=== PATIENT | female | born 1995 | race Caucasian/White ===

== ENCOUNTER 2017-10-18 13:34 | Emergency (ER) | payer OTHER, MEDICAID ==
[~2017-10-18] VITALS: Ht 154.9 cm; Wt 72.5 kg
[2017-10-18 14:27] LABS: MICROSCOPIC INDICATED
[2017-10-18 14:32] LABS: BASOPHILS # (AUTO) 0.05 x10^3/uL (0-0.1); BASOPHILS % (AUTO) 1 % (0-1); EOSINOPHILS # (AUTO) 0.15 x10^3/uL (0-0.4); EOSINOPHILS % (AUTO) 2 % (1-7); LYMPHOCYTES # (AUTO) 2.27 x10^3/uL (1-3.4); LYMPHOCYTES % (AUTO) 30 % (22-44); MD NO; MEAN CORPUSCULAR HEMOGLOBIN 26.4 pg (27.0-34.8); MEAN CORPUSCULAR HGB CONC 33.5 g/dL (32.4-35.8); MEAN CORPUSCULAR VOLUME 78.7 fL (80-100); MEAN PLATELET VOLUME 10.3 fL (7.4-10.4); MONOCYTES # (AUTO) 0.58 x10^3/uL (0.2-0.8); MONOCYTES % (AUTO) 8 % (2-9); NEUTROPHILS # (AUTO) 4.47 x10^3/uL (1.8-6.8); NEUTROPHILS % (AUTO) 59 % (42-75); PLATELET COUNT 209 x10^3/uL (130-400); RED BLOOD COUNT 4.61 x10^6/uL (3.82-5.3); RED CELL DISTRIBUTION WIDTH 17.4 % (9.6-15.2)
[2017-10-18 14:43] LABS: ALANINE AMINOTRANSFERASE 36 U/L (12-78); ALBUMIN 3.7 g/dL (3.4-5.0); ANION GAP 7 mmol/L (5-15); CALCIUM 8.3 mg/dL (8.5-10.1); CHLORIDE 107 mmol/L (98-107); CREATININE 0.68 mg/dL (0.55-1.02)
[2017-10-18 14:47] LABS: ALKALINE PHOSPHATASE 62 U/L (45-117); BILIRUBIN,TOTAL 0.2 mg/dL (0.2-1.0); TOTAL PROTEIN 7.3 g/dL (6.4-8.2)
[2017-10-18 14:56] LABS: CULTURE INDICATED? YES
[2017-10-18 15:07] VITALS: BP 110/56
== END 2017-10-18 15:35 | disposition home or self-care (01) ==
LOC: ED 14:57
DX: N30.00 Acute cystitis without hematuria (principal)
CPT/HCPCS: 36415; 80053; 81001; 84702; 85025; 87086; 99284

== ENCOUNTER 2018-03-08 18:44 | Emergency (ER) | payer OTHER, MEDICAID ==
[~2018-03-08] VITALS: Ht 154.9 cm; Wt 73.6 kg
[2018-03-08 19:20] LABS: BASOPHILS # (AUTO) 0.07 x10^3/uL (0-0.1); BASOPHILS % (AUTO) 1 % (0-1); EOSINOPHILS # (AUTO) 0.12 x10^3/uL (0-0.4); EOSINOPHILS % (AUTO) 1 % (1-7); LYMPHOCYTES # (AUTO) 3.97 x10^3/uL (1-3.4); LYMPHOCYTES % (AUTO) 41 % (22-44); MD NO; MEAN CORPUSCULAR HEMOGLOBIN 27.8 pg (27.0-34.8); MEAN CORPUSCULAR HGB CONC 33.6 g/dL (32.4-35.8); MEAN CORPUSCULAR VOLUME 82.6 fL (80-100); MEAN PLATELET VOLUME 8.9 fL (7.4-10.4); MONOCYTES # (AUTO) 0.62 x10^3/uL (0.2-0.8); MONOCYTES % (AUTO) 6 % (2-9); NEUTROPHILS # (AUTO) 4.92 x10^3/uL (1.8-6.8); NEUTROPHILS % (AUTO) 51 % (42-75); PLATELET COUNT 301 x10^3/uL (130-400); RED BLOOD COUNT 4.66 x10^6/uL (3.82-5.3); RED CELL DISTRIBUTION WIDTH 16.5 % (9.6-15.2)
[2018-03-08 19:29] LABS: ALBUMIN 3.6 g/dL (3.4-5.0); ANION GAP 10 mmol/L (5-15); CALCIUM 8.5 mg/dL (8.5-10.1); CHLORIDE 107 mmol/L (98-107); CREATININE 0.69 mg/dL (0.55-1.02)
[2018-03-08 19:31] LABS: MICROSCOPIC INDICATED
[2018-03-08 19:44] LABS: CULTURE INDICATED? YES
[2018-03-08 21:27] VITALS: BP 99/62
[2018-03-08 21:29] VITALS: BP 101/52
[2018-03-08 21:56] VITALS: BP 110/59
== END 2018-03-08 22:14 | disposition home or self-care (01) ==
LOC: ED 20:30
DX: O20.0 Threatened abortion (principal)
CPT/HCPCS: 36415; 76801; 80048; 81001; 82040; 84702; 85025; 86850; 86900; 87077; 87086; 87186; 96372; 99285; J2790

== ENCOUNTER 2018-03-19 20:29 | Emergency (ER) | payer OTHER, MEDICAID ==
[~2018-03-19] VITALS: Ht 154.9 cm; Wt 73.6 kg
[2018-03-19 21:12] LABS: BASOPHILS # (AUTO) 0.15 x10^3/uL (0-0.1); BASOPHILS % (AUTO) 2 % (0-1); EOSINOPHILS # (AUTO) 0.18 x10^3/uL (0-0.4); EOSINOPHILS % (AUTO) 2 % (1-7); LYMPHOCYTES # (AUTO) 2.84 x10^3/uL (1-3.4); LYMPHOCYTES % (AUTO) 33 % (22-44); MD NO; MEAN CORPUSCULAR HEMOGLOBIN 28.8 pg (27.0-34.8); MEAN CORPUSCULAR HGB CONC 34.4 g/dL (32.4-35.8); MEAN CORPUSCULAR VOLUME 83.7 fL (80-100); MEAN PLATELET VOLUME 9.7 fL (7.4-10.4); MONOCYTES # (AUTO) 0.64 x10^3/uL (0.2-0.8); MONOCYTES % (AUTO) 7 % (2-9); NEUTROPHILS # (AUTO) 4.87 x10^3/uL (1.8-6.8); NEUTROPHILS % (AUTO) 56 % (42-75); PLATELET COUNT 215 x10^3/uL (130-400); RED BLOOD COUNT 4.23 x10^6/uL (3.82-5.3); RED CELL DISTRIBUTION WIDTH 16.7 % (9.6-15.2)
[2018-03-19 21:26] LABS: ALBUMIN 3.3 g/dL (3.4-5.0); ANION GAP 9 mmol/L (5-15); CALCIUM 8.3 mg/dL (8.5-10.1); CHLORIDE 109 mmol/L (98-107); CREATININE 0.62 mg/dL (0.55-1.02)
[2018-03-19 21:53] LABS: MICROSCOPIC AUTO
[2018-03-19 21:55] LABS: CULTURE INDICATED? YES
[2018-03-19 22:27] VITALS: BP 122/71
== END 2018-03-19 22:30 | disposition home or self-care (01) ==
LOC: ED 21:04
DX: O20.0 Threatened abortion (principal); O23.40 Unspecified infection of urinary tract in pregnancy, unspecified trimester; Z3A.01 Less than 8 weeks gestation of pregnancy
CPT/HCPCS: 36415; 76801; 80048; 81001; 82040; 84702; 85025; 86900; 87086; 99284

== ENCOUNTER 2018-08-27 19:05 | Outpatient (CLI) | payer OTHER ==
[~2018-08-27] VITALS: Ht 154.9 cm; Wt 79.0 kg
[~2018-08-27 19:05] MED LIST: PREN1TAB60 PO
[2018-08-27 19:14] VITALS: BP 112/55
[2018-08-27 19:37] LABS: MICROSCOPIC AUTO
[2018-08-28] MEDS ORDERED: DIPH25TA65 PO (01:51)
[2018-08-29] MEDS ORDERED: PRED20TA PO ×2 (15:19)
== END 2018-08-27 20:20 | disposition home or self-care (01) ==
LOC: LDOP 19:05
PROVIDERS: ATTEND Obstetrics & Gynecology
DX: O26.893 Other specified pregnancy related conditions, third trimester (principal); O99.513 Diseases of the respiratory system complicating pregnancy, third trimester; R10.9 Unspecified abdominal pain; R06.02 Shortness of breath; Z3A.30 30 weeks gestation of pregnancy
CPT/HCPCS: 59025; 81001; 87086; 99211; G0463

== ENCOUNTER 2018-08-27 20:32 | Inpatient (IN) | payer OTHER ==
[~2018-08-27] VITALS: Ht 162.6 cm; Wt 81.6 kg
[2018-08-27] MEDS ORDERED: SODIUM CHLORIDE 0.9% 1,000ML IVBOLUS ONE (21:00)
[2018-08-27] MEDS ORDERED: ALBUTEROL SULFATE 2.5 MG/3 ML NPPB ONE (21:00)
[2018-08-27] MEDS ORDERED: ALBUTEROL/IPRATROPIUM 2.5MG/0.5MG, 3 ML ONE ×2 (21:05→22:55)
[2018-08-27 21:27] LABS: BASOPHILS # (AUTO) 0.01 x10^3/uL (0-0.1); BASOPHILS % (AUTO) 0 % (0-1); EOSINOPHILS # (AUTO) 0.29 x10^3/uL (0-0.4); EOSINOPHILS % (AUTO) 2 % (1-7); LYMPHOCYTES # (AUTO) 1.37 x10^3/uL (1-3.4); LYMPHOCYTES % (AUTO) 10 % (22-44); MD NO; MEAN CORPUSCULAR HEMOGLOBIN 26.1 pg (27.0-34.8); MEAN CORPUSCULAR HGB CONC 33.4 g/dL (32.4-35.8); MEAN CORPUSCULAR VOLUME 78.1 fL (80-100); MEAN PLATELET VOLUME 8.9 fL (7.4-10.4); MONOCYTES # (AUTO) 0.82 x10^3/uL (0.2-0.8); MONOCYTES % (AUTO) 6 % (2-9); NEUTROPHILS # (AUTO) 11.71 x10^3/uL (1.8-6.8); NEUTROPHILS % (AUTO) 83 % (42-75); PLATELET COUNT 219 x10^3/uL (130-400); RED BLOOD COUNT 4.11 x10^6/uL (3.82-5.3); RED CELL DISTRIBUTION WIDTH 16.9 % (9.6-15.2)
[2018-08-27 21:39] LABS: ALBUMIN 3.3 g/dL (3.4-5.0); ANION GAP 7 mmol/L (5-15); CALCIUM 8.8 mg/dL (8.5-10.1); CHLORIDE 109 mmol/L (98-107)
[2018-08-27 21:43] LABS: TROPONIN I < 0.015 ng/mL (0.000-0.045)
--- NOTE | 2018-08-27 21:57 | NUR ---
TO CT NOW
--- NOTE | 2018-08-27 22:22 | NUR ---
PT AMBULATED TO BR WITHOUT DIFFICULTY. MULTIPLE FAMILY MEMBERS AT .
[2018-08-27] MEDS ORDERED: ALBUTEROL/IPRATROPIUM 2.5MG/0.5MG, 3 ML NPPB ONE (23:00)
--- NOTE | 2018-08-27 23:24 | NUR ---
O2 WEANED TO 0.5L, SPO2 95%. BUT HR STILL ELEVATED 140s AT THIS TIME. PT C/O SOB AND PAIN BELOW HER SHOULDER BLADES DOWN TO HER BACK 12/02. SPEAKING IN FULL SENTENCES, A&OX4.
[2018-08-28] VITALS (8 sets, daily range): BP systolic 99–189; BP diastolic 66–96
--- NOTE | 2018-08-28 00:01 | NUR ---
PT UNDERSTANDS PLAN FOR ADMISSION. FAMILY LEAVING FOR THE NIGHT.
--- NOTE | 2018-08-28 00:07 | NUR ---
assumed care of pt from shirley ross. pt stable, hr elevated, smh md pretty to bs, water given, call light in place.
--- NOTE | 2018-08-28 00:23 | NUR ---
pt to 494-2 now with belongings, shirley kc recieved report.
[2018-08-28] MEDS ORDERED: ALBUTEROL SULFATE 2.5 MG/3 ML NPPB PRN (00:30)
[2018-08-28] MEDS ORDERED: ALBUTEROL/IPRATROPIUM 2.5MG/0.5MG, 3 ML HHN PRN (00:30)
[2018-08-28] MEDS: SODIUM CHLORIDE 0.9% 1,000 ML IV SCH ×2 (01:41→16:45)
[2018-08-28] MEDS ORDERED: DIPH25TA65 PO (01:51)
[2018-08-28] MEDS ORDERED: ACETAMINOPHEN 325 MG TABLET PO ONE (02:30)
[2018-08-28 06:43] LABS: TROPONIN I < 0.015 ng/mL (0.000-0.045)
[2018-08-28 12:15] LABS: ANION GAP 9 mmol/L (5-15); CALCIUM 8.4 mg/dL (8.5-10.1); CHLORIDE 111 mmol/L (98-107)
[2018-08-28 12:16] LABS: CREATININE 0.49 mg/dL (0.55-1.02)
[2018-08-28 13:51] LABS: FREE T4 (FREE THYROXINE) 0.88 ng/dL (0.76-1.46); THYROID STIMULATING HORMONE 0.681 mIU/L (0.358-3.740)
[2018-08-28] MEDS ORDERED: ACETAMINOPHEN 325 MG TABLET PO PRN (17:00)
[2018-08-28] MEDS ORDERED: OMNIPAQUE 350 MG/ML, 100ML BOTTLE ONE (21:00)
[2018-08-29 01:03] VITALS: BP 106/60
[2018-08-29] MEDS: SODIUM CHLORIDE 0.9% 1,000 ML IV SCH (05:06)
[2018-08-29 06:29] LABS: BASOPHILS # (AUTO) 0.02 x10^3/uL (0-0.1); BASOPHILS % (AUTO) 0 % (0-1); EOSINOPHILS % (AUTO) 0 % (1-7); LYMPHOCYTES # (AUTO) 1.47 x10^3/uL (1-3.4); LYMPHOCYTES % (AUTO) 13 % (22-44); MD NO; MEAN CORPUSCULAR HEMOGLOBIN 26.2 pg (27.0-34.8); MEAN CORPUSCULAR HGB CONC 33.2 g/dL (32.4-35.8); MEAN PLATELET VOLUME 8.5 fL (7.4-10.4); MONOCYTES # (AUTO) 0.57 x10^3/uL (0.2-0.8); MONOCYTES % (AUTO) 5 % (2-9); NEUTROPHILS # (AUTO) 9.14 x10^3/uL (1.8-6.8); NEUTROPHILS % (AUTO) 82 % (42-75); PLATELET COUNT 212 x10^3/uL (130-400); RED BLOOD COUNT 3.51 x10^6/uL (3.82-5.3)
[2018-08-29 06:41] LABS: ANION GAP 8 mmol/L (5-15); CALCIUM 8.2 mg/dL (8.5-10.1); CHLORIDE 114 mmol/L (98-107); CREATININE 0.38 mg/dL (0.55-1.02)
[2018-08-29 07:46] VITALS: BP 99/61
[2018-08-29 14:43] VITALS: BP 105/69
[2018-08-29] MEDS ORDERED: PRED20TA PO (15:19)
== END 2018-08-29 16:53 | disposition home or self-care (01) | DRG 831 ==
LOC: ED 20:57 → EDIP 08-28 → 4EST 08-28 00:57 → DCLOUNGE 08-29 16:40
PROVIDERS: ADMIT Internal Medicine; ATTEND Internal Medicine
DX: O99.113 Other diseases of the blood and blood-forming organs and certain disorders involving the immune mechanism complicating pregnancy, third trimester (principal); J96.01 Acute respiratory failure with hypoxia; J45.901 Unspecified asthma with (acute) exacerbation; J98.11 Atelectasis; D72.829 Elevated white blood cell count, unspecified; E87.6 Hypokalemia; O99.513 Diseases of the respiratory system complicating pregnancy, third trimester; O99.283 Endocrine, nutritional and metabolic diseases complicating pregnancy, third trimester; Z3A.30 30 weeks gestation of pregnancy; Z83.3 Family history of diabetes mellitus; Z83.2 Family history of diseases of the blood and blood-forming organs and certain disorders involving the immune mechanism; Z79.899 Other long term (current) drug therapy
CPT/HCPCS: 36415; 96360; 99285; J7620; 71275; 80048; 82040; 82962; 83880; 84439; 84443; 84484; 85025; 93005; 93306; 94640; G0378; Q9967; J7030; J7512

== ENCOUNTER 2018-09-14 09:02 | Outpatient (CLI) | payer OTHER ==
[~2018-09-14] VITALS: Ht 154.9 cm; Wt 77.3 kg
[~2018-09-14 09:02] MED LIST changes: +DIPH25TA65 PO; +PRED20TA PO
[2018-09-14 09:55] VITALS: BP 115/59
[2018-09-14 10:01] LABS: MICROSCOPIC AUTO
[2018-09-14] MEDS ORDERED: NITR100C56 PO (10:35)
== END 2018-09-14 10:50 | disposition home or self-care (01) ==
LOC: LDOP 09:02
PROVIDERS: ATTEND Obstetrics & Gynecology
DX: O26.893 Other specified pregnancy related conditions, third trimester (principal); Z3A.32 32 weeks gestation of pregnancy
CPT/HCPCS: 59025; 81001; 87086; 99211; G0463

== ENCOUNTER 2018-09-25 17:17 | Outpatient (CLI) | payer OTHER ==
[~2018-09-25] VITALS: Ht 154.9 cm; Wt 80.0 kg
[~2018-09-25 17:17] MED LIST changes: +NITR100C56 PO
[2018-09-25 17:25] VITALS: BP 100/52
[2018-09-25] MEDS ORDERED: ACETAMINOPHEN 325 MG TABLET ONE (17:39)
[2018-09-25] MEDS ORDERED: ACETAMINOPHEN 325 MG TABLET PO ONE (18:00)
== END 2018-09-25 19:10 | disposition home or self-care (01) ==
LOC: LDOP 17:17
PROVIDERS: ATTEND Obstetrics & Gynecology
DX: O26.893 Other specified pregnancy related conditions, third trimester (principal); R51 Headache; Z3A.34 34 weeks gestation of pregnancy
CPT/HCPCS: 59025; 99211; G0463

== ENCOUNTER 2018-10-09 07:11 | Outpatient (CLI) | payer OTHER ==
[~2018-10-09] VITALS: Ht 154.9 cm; Wt 78.2 kg
[2018-10-09 07:27] VITALS: BP 107/58
[2018-10-09] MEDS ORDERED: ACETAMINOPHEN 325 MG TABLET PO PRN (08:00)
[2018-10-09] MEDS ORDERED: ACETAMINOPHEN 325 MG TABLET ONE (08:03)
[2018-10-09 08:09] LABS: MICROSCOPIC INDICATED
== END 2018-10-09 09:26 | disposition home or self-care (01) ==
LOC: LDOP 07:11
PROVIDERS: ATTEND Obstetrics & Gynecology
DX: O26.893 Other specified pregnancy related conditions, third trimester (principal); R10.9 Unspecified abdominal pain; Z3A.36 36 weeks gestation of pregnancy
CPT/HCPCS: 59025; 81001; 87081; 87086; 99211; G0463

== ENCOUNTER 2018-10-13 21:52 | Outpatient (CLI) | payer OTHER ==
[~2018-10-13] VITALS: Ht 154.9 cm; Wt 78.6 kg
[2018-10-13 22:15] VITALS: BP 118/72
[2018-10-13 23:22] LABS: CULTURE INDICATED? YES; MICROSCOPIC INDICATED
== END 2018-10-13 23:23 | disposition home or self-care (01) ==
LOC: LDOP 21:52
PROVIDERS: ATTEND Obstetrics & Gynecology
DX: O26.893 Other specified pregnancy related conditions, third trimester (principal); Z3A.36 36 weeks gestation of pregnancy
CPT/HCPCS: 59025; 81001; 87086; 99211; G0463

== ENCOUNTER 2018-10-19 18:11 | Outpatient (CLI) | payer OTHER ==
[~2018-10-19] VITALS: Ht 154.9 cm; Wt 78.6 kg
[2018-10-19 18:21] VITALS: BP 120/78
== END 2018-10-19 19:10 | disposition home or self-care (01) ==
LOC: LDOP 18:11
PROVIDERS: ATTEND Obstetrics & Gynecology
DX: O26.893 Other specified pregnancy related conditions, third trimester (principal); R10.9 Unspecified abdominal pain; Z3A.49 Greater than 42 weeks gestation of pregnancy
CPT/HCPCS: 59025; 99211; G0463

== ENCOUNTER 2018-10-29 18:56 | Outpatient (CLI) | payer OTHER ==
[~2018-10-29] VITALS: Ht 154.9 cm; Wt 78.0 kg
[2018-10-29 19:18] VITALS: BP 124/68
== END 2018-10-29 20:36 | disposition home or self-care (01) ==
LOC: LDOP 18:56
PROVIDERS: ATTEND Obstetrics & Gynecology
DX: O26.893 Other specified pregnancy related conditions, third trimester (principal); R10.9 Unspecified abdominal pain; Z3A.39 39 weeks gestation of pregnancy
CPT/HCPCS: 59025; 99211; G0463

== ENCOUNTER 2018-10-30 18:51 | Outpatient (CLI) | payer OTHER ==
[~2018-10-30] VITALS: Ht 154.9 cm; Wt 78.6 kg
[2018-10-30 19:55] VITALS: BP 118/75
== END 2018-10-30 21:00 | disposition home or self-care (01) ==
LOC: LDOP 18:51
PROVIDERS: ATTEND Obstetrics & Gynecology
DX: O26.893 Other specified pregnancy related conditions, third trimester (principal); R10.9 Unspecified abdominal pain; Z3A.39 39 weeks gestation of pregnancy
CPT/HCPCS: 59025; 99211; G0463

== ENCOUNTER 2018-10-31 12:49 | Outpatient (CLI) | payer OTHER ==
[~2018-10-31] VITALS: Ht 154.9 cm; Wt 78.6 kg
== END 2018-10-31 14:45 | disposition home or self-care (01) ==
LOC: LDOP 12:49
PROVIDERS: ATTEND Obstetrics & Gynecology
DX: O26.893 Other specified pregnancy related conditions, third trimester (principal); R10.9 Unspecified abdominal pain; Z3A.39 39 weeks gestation of pregnancy
CPT/HCPCS: 59025; 99211; G0463

== ENCOUNTER 2018-11-05 06:52 | Inpatient (IN) | payer OTHER ==
[~2018-11-05] VITALS: Ht 154.9 cm; Wt 86.4 kg
[2018-11-05 07:37] VITALS: BP 120/58
[2018-11-05] MEDS ORDERED: D5%-LACTATED RINGERS 1,000 ML IV SCH (09:47)
[2018-11-05] MEDS ORDERED: OXYTOCIN 30U/ 0.9% NaCL 500ML 500 ML IV ONE (09:47)
[2018-11-05] MEDS ORDERED: FENTANYL PF 100 MCG/2ML IVPush PRN (10:00)
[2018-11-05] MEDS ORDERED: FENTANYL PF 100 MCG/2ML IV PRN (10:00)
[2018-11-05] MEDS ORDERED: TERBUTALINE 1 MG/ML, 1ML IVPush PRN (10:00)
[2018-11-05] MEDS ORDERED: CALCIUM CARBONATE 500 MG TAB.CHEW PO PRN ×2 (10:00→19:30)
[2018-11-05] MEDS ORDERED: ONDANSETRON 2MG/ML, 2ML IVPush PRN ×2 (10:00→17:00)
[2018-11-05 10:21] LABS: BASOPHILS % (AUTO) 0 % (0-1); EOSINOPHILS % (AUTO) 1 % (1-7); MD NO
[2018-11-05] MEDS: LACTATED RINGERS 1,000 ML IV SCH ×2 (10:21→15:33)
[2018-11-05 10:24] LABS: BASOPHILS # (AUTO) 0.04 x10^3/uL (0-0.1); LYMPHOCYTES # (AUTO) 2.04 x10^3/uL (1-3.4); LYMPHOCYTES % (AUTO) 21 % (22-44); MEAN CORPUSCULAR HEMOGLOBIN 23.8 pg (27.0-34.8); MEAN CORPUSCULAR HGB CONC 31.8 g/dL (32.4-35.8); MEAN CORPUSCULAR VOLUME 74.9 fL (80-100); MEAN PLATELET VOLUME 9.3 fL (7.4-10.4); MONOCYTES # (AUTO) 0.59 x10^3/uL (0.2-0.8); MONOCYTES % (AUTO) 6 % (2-9); NEUTROPHILS # (AUTO) 7.13 x10^3/uL (1.8-6.8); NEUTROPHILS % (AUTO) 72 % (42-75); PLATELET COUNT 223 x10^3/uL (130-400); RED BLOOD COUNT 3.97 x10^6/uL (3.82-5.3); RED CELL DISTRIBUTION WIDTH 19.4 % (9.6-15.2)
[2018-11-05] MEDS ORDERED: LIDOCAINE 1%, 20ML ONE ×2 (10:40→16:11)
[2018-11-05] MEDS ORDERED: NEWBORN KIT ONE (10:40)
[2018-11-05] MEDS ORDERED: MISOPROSTOL 200 MCG TABLET ONE (10:41)
[2018-11-05] MEDS ORDERED: OXYTOCIN 30U/ 0.9% NaCL 500ML 500 ML ONE ×2 (11:00→19:16)
[2018-11-05] MEDS ORDERED: OXYTOCIN 30U/ 0.9% NaCL 500ML 500 ML IV PRN (12:13)
[2018-11-05] MEDS ORDERED: FENTANYL/BUPIV./NS/PF 250 ML EPIDCONT ONE ×2 (16:00→16:11)
[2018-11-05] MEDS ORDERED: BUPIVACAINE 0.25% ONE ×2 (16:06→16:11)
[2018-11-05] MEDS ORDERED: LIDOCAINE/PF 1.5%-EPI 1:200K, 30ML ONE (16:11)
[2018-11-05] MEDS ORDERED: LACTATED RINGERS 1,000 ML IV SCH (16:39)
[2018-11-05] MEDS ORDERED: FENTANYL/BUPIV./NS/PF 250 ML EPIDCONT SCH (16:39)
[2018-11-05] MEDS ORDERED: DIPHENHYDRAMINE 50 MG/ML, 1ML IVPush PRN (17:00)
[2018-11-05] MEDS ORDERED: EPHEDRINE 50 MG/ML, 1ML IVPush PRN (17:00)
[2018-11-05] MEDS ORDERED: NALOXONE 0.4 MG/ML, 1ML IVPush PRN (17:00)
[2018-11-05] MEDS ORDERED: LACTATED RINGERS 1,000 ML IVBOLUS PRN (17:00)
[2018-11-05] MEDS ORDERED: METHYLERGONOVINE 0.2 MG/ML IM ONE (18:54)
[2018-11-05] MEDS ORDERED: ACETAMINOPHEN 325 MG TABLET PO PRN ×2 (19:30)
[2018-11-05] MEDS ORDERED: METHYLERGONOVINE 0.2 MG/ML IM PRN ×2 (19:30)
[2018-11-05] MEDS ORDERED: RHOGAM FROM BLOOD BANK 1 NOTE EA IM/IV ONE (19:30)
[2018-11-05] MEDS ORDERED: MISOPROSTOL 200 MCG TABLET PR ONE (19:30)
[2018-11-05] MEDS ORDERED: ONDANSETRON 2MG/ML, 2ML IV PRN (19:30)
[2018-11-05] MEDS ORDERED: MEASLES,MUMPS&RUBELLA VACC/PF 0.5 ML SQ-VACC PRN (19:30)
[2018-11-05] MEDS ORDERED: CARBOPROST TROMETHAMINE 250 MCG/ML, 1ML IM PRN (19:30)
[2018-11-05] MEDS ORDERED: OXYTOCIN 10 UNITS/ML, 1ML IM PRN (19:30)
[2018-11-05] MEDS: OXYTOCIN 30U/ 0.9% NaCL 500ML 500 ML IV SCH ×4 (19:30→22:52)
[2018-11-05] MEDS ORDERED: OXYcodone/APAP 5/325MG TABLET PO PRN ×2 (19:30)
[2018-11-05] MEDS ORDERED: MAGNESIUM HYDROXIDE 8%, 30ML UDC PO PRN (19:30)
[2018-11-05] MEDS ORDERED: MISOPROSTOL 200 MCG TABLET PR PRN (19:30)
[2018-11-05 21:00] VITALS: BP 109/71
[2018-11-05 23:50] VITALS: BP 109/74
[2018-11-06] MEDS: OXYTOCIN 30U/ 0.9% NaCL 500ML 500 ML IV SCH ×19 (00:18→23:14)
[2018-11-06] MEDS: IBUPROFEN 800 MG TABLET PO PRN ×2 (00:32→11:44)
[2018-11-06 02:53] LABS: BASOPHILS # (AUTO) 0.04 x10^3/uL (0-0.1); BASOPHILS % (AUTO) 0 % (0-1); EOSINOPHILS # (AUTO) 0.22 x10^3/uL (0-0.4); EOSINOPHILS % (AUTO) 2 % (1-7); LYMPHOCYTES # (AUTO) 1.98 x10^3/uL (1-3.4); LYMPHOCYTES % (AUTO) 18 % (22-44); MD NO; MEAN CORPUSCULAR HEMOGLOBIN 23.9 pg (27.0-34.8); MEAN CORPUSCULAR VOLUME 74.7 fL (80-100); MEAN PLATELET VOLUME 8.8 fL (7.4-10.4); MONOCYTES # (AUTO) 0.65 x10^3/uL (0.2-0.8); MONOCYTES % (AUTO) 6 % (2-9); NEUTROPHILS # (AUTO) 8.12 x10^3/uL (1.8-6.8); NEUTROPHILS % (AUTO) 74 % (42-75); PLATELET COUNT 218 x10^3/uL (130-400); RED BLOOD COUNT 3.26 x10^6/uL (3.82-5.3); RED CELL DISTRIBUTION WIDTH 19.6 % (9.6-15.2)
[2018-11-06 05:00] VITALS: BP 117/74
[2018-11-06 07:43] VITALS: BP 102/66
[2018-11-06] MEDS: DOCUSATE 100 MG CAPSULE PO PRN ×2 (11:44→19:43)
[2018-11-06] MEDS: PRENATAL VIT/IRON/FA 1 EACH TABLET PO SCH (11:44)
[2018-11-06] MEDS: FERROUS SULFATE 325 MG TABLET PO SCH ×2 (11:48→19:43)
[2018-11-06 12:55] VITALS: BP 113/74
[2018-11-06 20:00] VITALS: BP 103/68
[2018-11-07] MEDS: OXYTOCIN 30U/ 0.9% NaCL 500ML 500 ML IV SCH ×9 (00:40→11:21)
[2018-11-07] MEDS: DOCUSATE 100 MG CAPSULE PO PRN (08:56)
[2018-11-07] MEDS: FERROUS SULFATE 325 MG TABLET PO SCH ×2 (08:56→12:18)
[2018-11-07] MEDS: PRENATAL VIT/IRON/FA 1 EACH TABLET PO SCH (08:56)
== END 2018-11-07 14:00 | disposition home or self-care (01) | DRG 806 ==
LOC: LDOP 06:52 → LDIP 09:47 → 2NW 20:54
PROVIDERS: ADMIT Obstetrics & Gynecology; ATTEND Obstetrics & Gynecology
PROC: 10E0XZZ Delivery of Products of Conception, External Approach (ICD-10-PCS; principal; 2018-11-05)
PROC: 10907ZC Drainage of Amniotic Fluid, Therapeutic from Products of Conception, Via Natural or Artificial Opening (ICD-10-PCS; 2018-11-05)
PROC: 3E0R3BZ Introduction of Anesthetic Agent into Spinal Canal, Percutaneous Approach (ICD-10-PCS; 2018-11-05)
PROC: 00HU33Z Insertion of Infusion Device into Spinal Canal, Percutaneous Approach (ICD-10-PCS; 2018-11-05)
PROC: 0UQGXZZ Repair Vagina, External Approach (ICD-10-PCS; 2018-11-05)
PROC: 3E0234Z Introduction of Serum, Toxoid and Vaccine into Muscle, Percutaneous Approach (ICD-10-PCS; 2018-11-06)
DX: O99.02 Anemia complicating childbirth (principal); O71.4 Obstetric high vaginal laceration alone; Z37.0 Single live birth; Z3A.40 40 weeks gestation of pregnancy; D64.9 Anemia, unspecified
CPT/HCPCS: 36415; J2790; J3490; 84112; 85014; 85018; 85025; 85461; 86850; 86900; 86923; G0378; J2210; J2590; J3010; J7120

== ENCOUNTER 2019-11-13 16:42 | Emergency (ER) | payer OTHER ==
[~2019-11-13] VITALS: Ht 154.9 cm; Wt 85.4 kg
[2019-11-13 16:48] VITALS: BP 110/56
[2019-11-13 17:44] LABS: BASOPHILS # (AUTO) 0.08 x10^3/uL (0-0.1); BASOPHILS % (AUTO) 1 % (0-1); EOSINOPHILS # (AUTO) 0.18 x10^3/uL (0-0.4); EOSINOPHILS % (AUTO) 3 % (1-7); LYMPHOCYTES # (AUTO) 3.04 x10^3/uL (1-3.4); LYMPHOCYTES % (AUTO) 42 % (22-44); MD NO; MEAN CORPUSCULAR HEMOGLOBIN 26.8 pg (27.0-34.8); MEAN CORPUSCULAR HGB CONC 32.8 g/dL (32.4-35.8); MEAN CORPUSCULAR VOLUME 81.8 fL (80-100); MEAN PLATELET VOLUME 9.9 fL (7.4-10.4); MONOCYTES # (AUTO) 0.53 x10^3/uL (0.2-0.8); MONOCYTES % (AUTO) 7 % (2-9); NEUTROPHILS # (AUTO) 3.34 x10^3/uL (1.8-6.8); NEUTROPHILS % (AUTO) 47 % (42-75); PLATELET COUNT 230 x10^3/uL (130-400); RED BLOOD COUNT 4.54 x10^6/uL (3.82-5.3); RED CELL DISTRIBUTION WIDTH 15.7 % (9.6-15.2)
[2019-11-13 17:52] LABS: ALANINE AMINOTRANSFERASE 52 U/L (12-78); ALBUMIN 3.8 g/dL (3.4-5.0); ANION GAP 7 mmol/L (5-15); CALCIUM 8.4 mg/dL (8.5-10.1); CHLORIDE 110 mmol/L (98-107); CREATININE 0.64 mg/dL (0.55-1.02)
[2019-11-13 17:57] LABS: ALKALINE PHOSPHATASE 57 U/L (45-117); BILIRUBIN,TOTAL 0.3 mg/dL (0.2-1.0); TOTAL PROTEIN 7.1 g/dL (6.4-8.2)
--- NOTE | 2019-11-13 18:02 | NUR ---
PT PROVIDED WITH BOTTLED WATER. UP TO RESTROOM FOR URINE SAMPLE COLLECTION. PT DENIES ANY NEEDS AT THIS TIME, CALL LIGHT IN REACH.
--- NOTE | 2019-11-13 18:13 | NUR ---
UA COLLECTED AND SENT AT THIS TIME. PT DENIES ANY FURTHER NEEDS OR CONCERNS, CALL LIGHT IN REACH.
[2019-11-13 18:23] LABS: MICROSCOPIC AUTO
== END 2019-11-13 19:09 | disposition home or self-care (01) ==
LOC: ED 18:25
DX: N30.00 Acute cystitis without hematuria (principal); R42 Dizziness and giddiness; R06.00 Dyspnea, unspecified; R51 Headache; N92.6 Irregular menstruation, unspecified
CPT/HCPCS: 36415; 71045; 80053; 81001; 84703; 85025; 87086; 93005; 99285

== ENCOUNTER 2019-12-26 07:08 | Emergency (ER) | payer OTHER ==
[~2019-12-26] VITALS: Ht 154.9 cm; Wt 86.6 kg
[2019-12-26] MEDS ORDERED: ACETAMINOPHEN 500 MG TABLET ONE (07:50)
[2019-12-26] MEDS ORDERED: ACETAMINOPHEN 500 MG TABLET PO ONE (08:00)
[2019-12-26] MEDS ORDERED: SODIUM CHLORIDE 0.9% 1,000ML IVBOLUS ONE (08:00)
--- NOTE | 2019-12-26 08:03 | NUR ---
FIRST CONTACT WITH PT, ASSUME CARE AT THIS TIME. RECENT EXPOSURE TO COVID + RELATIVE. SOB, COUGH, BODY ACHES, SORE THROAT, MCGARRY SYMPTOMS SINCE 12/22. PT IN BED IN GOWN WITH CONT SPO2, BP Q 30 MIN, SIDE RAILSD UP X2, CALL LIGHT IN REACH. WENT OER PLASN OF CARE FROM ORDER LIST AGREES TO PLAN. PT PUT ON 2 L NC FOR SPO2 OF 92% PT SPO2. O2 AT 95%. XRAY IN ROOM
[2019-12-26 09:01] VITALS: BP 126/67
== END 2019-12-26 09:03 | disposition home or self-care (01) ==
LOC: ED 08:40
DX: B34.9 Viral infection, unspecified (principal); Z20.828 Contact with and (suspected) exposure to other viral communicable diseases; R50.9 Fever, unspecified; R07.89 Other chest pain; R06.02 Shortness of breath; R51 Headache; R05 Cough; M79.10 Myalgia, unspecified site
CPT/HCPCS: 36415; 71045; 87635; 96360; 99284; J7030

== ENCOUNTER 2020-06-08 09:14 | Emergency (ER) | payer OTHER ==
[~2020-06-08] VITALS: Ht 154.9 cm; Wt 91.0 kg
--- NOTE | 2020-06-08 09:39 | NUR ---
PT COMES IN C/O 11/01 BACK PAIN AND LOWER PELVIC PAIN. PT STATES "MY LAST MENTRAUL CYCLE WAS IN MARCH. I TOOK TESTS ALL MONTH LAST MONTH THAT WERE NEGATIVE. I TOOK ANOTHER ONE 4 DAYS AGO THAT WAS POSITIVE". PT STATES "PINK" SPOTTING W/URINATION AND NAUSEA. MONITORS CONNECTED. WARM BLANKET PROVIDED. CALL LIGHT W/IN REACH.
--- NOTE | 2020-06-08 09:51 | NUR ---
PROVIDER AT BEDSIDE FOR ASSESSMENT
[2020-06-08] MEDS ORDERED: ONDANSETRON ODT 4 MG PO ONE (10:00)
[2020-06-08] MEDS ORDERED: ONDANSETRON ODT 4 MG ONE (10:08)
[2020-06-08 10:18] LABS: ALANINE AMINOTRANSFERASE 38 U/L (12-78); ALBUMIN 3.4 g/dL (3.4-5.0); ANION GAP 9 mmol/L (5-15); CALCIUM 8.3 mg/dL (8.5-10.1); CHLORIDE 110 mmol/L (98-107)
[2020-06-08 10:19] LABS: BASOPHILS % (AUTO) 1 % (0-1); EOSINOPHILS % (AUTO) 2 % (1-7); LYMPHOCYTES % (AUTO) 36 % (22-44); MD NO; MEAN CORPUSCULAR HEMOGLOBIN 28.8 pg (27.0-34.8); MEAN PLATELET VOLUME 9.6 fL (7.4-10.4); MONOCYTES % (AUTO) 7 % (2-9); NEUTROPHILS % (AUTO) 55 % (42-75); PLATELET COUNT 190 x10^3/uL (130-400); RED BLOOD COUNT 4.52 x10^6/uL (3.82-5.3); RED CELL DISTRIBUTION WIDTH 15.2 % (9.6-15.2)
[2020-06-08 10:23] LABS: CREATININE 0.65 mg/dL (0.55-1.02)
[2020-06-08 10:24] LABS: ALKALINE PHOSPHATASE 63 U/L (45-117); BILIRUBIN,TOTAL 0.4 mg/dL (0.2-1.0); TOTAL PROTEIN 6.8 g/dL (6.4-8.2)
[2020-06-08 10:28] LABS: MICROSCOPIC AUTO
[2020-06-08] MEDS ORDERED: CEFDINIR 300 MG CAPSULE PO ONE (11:00)
[2020-06-08] MEDS ORDERED: CEFDINIR 300 MG CAPSULE ONE (11:05)
--- NOTE | 2020-06-08 11:08 | NUR ---
TASK RN: MEDS ADMIN PER JUN. N/O FOR US. PT UPDATED ON POC. REPORT GIVEN TO PRIMARY RN.
--- NOTE | 2020-06-08 11:55 | NUR ---
PT TO ULTRASOUND
[2020-06-08 13:10] VITALS: BP 107/61
== END 2020-06-08 13:12 | disposition home or self-care (01) ==
LOC: ED 12:20
DX: O23.11 Infections of bladder in pregnancy, first trimester (principal); R10.9 Unspecified abdominal pain; M54.5 Low back pain; Z3A.00 Weeks of gestation of pregnancy not specified
CPT/HCPCS: 76801; 80053; 81001; 83690; 84702; 85025; 87086; 99284; Q0162; 36415; 84703

== ENCOUNTER 2020-06-25 16:08 | Emergency (ER) | payer OTHER ==
[~2020-06-25] VITALS: Ht 154.9 cm; Wt 91.5 kg
--- NOTE | 2020-06-25 16:47 | NUR ---
Pt is with 1 previous miscarriage. States she only sees blood when she pees or right after she goes when she's wiping. Bleeding started today. Pt resting in bed, NOLVIA.
[2020-06-25 17:58] LABS: MICROSCOPIC INDICATED
[2020-06-25 18:03] LABS: BASOPHILS % (AUTO) 1 % (0-1); EOSINOPHILS % (AUTO) 2 % (1-7); LYMPHOCYTES % (AUTO) 28 % (22-44); MD NO; MEAN CORPUSCULAR HEMOGLOBIN 28.9 pg (27.0-34.8); MEAN CORPUSCULAR HGB CONC 34.1 g/dL (32.4-35.8); MEAN PLATELET VOLUME 9.3 fL (7.4-10.4); MONOCYTES % (AUTO) 6 % (2-9); NEUTROPHILS % (AUTO) 63 % (42-75); PLATELET COUNT 196 x10^3/uL (130-400); RED BLOOD COUNT 4.52 x10^6/uL (3.82-5.3); RED CELL DISTRIBUTION WIDTH 15.4 % (9.6-15.2)
--- NOTE | 2020-06-25 18:10 | NUR ---
US at bedside.
[2020-06-25 18:11] LABS: ALBUMIN 3.6 g/dL (3.4-5.0); ANION GAP 9 mmol/L (5-15); CALCIUM 9.5 mg/dL (8.5-10.1); CHLORIDE 106 mmol/L (98-107)
--- NOTE | 2020-06-25 18:18 | NUR ---
This RN at bedside to witness transvag US.
[2020-06-25 18:30] LABS: ALANINE AMINOTRANSFERASE 32 U/L (12-78); ALKALINE PHOSPHATASE 57 U/L (45-117); BILIRUBIN,TOTAL 0.3 mg/dL (0.2-1.0); CREATININE 0.63 mg/dL (0.55-1.02); TOTAL PROTEIN 7.3 g/dL (6.4-8.2)
[2020-06-25 18:50] VITALS: BP 122/60
--- NOTE | 2020-06-25 18:53 | NUR ---
Report received from SAVI Alberto. This RN to assume care.
--- NOTE | 2020-06-25 19:02 | NUR ---
Pt medicated. Tolerated well. Pt resting in bed, watching TV.
[2020-06-25 19:05] VITALS: BP 128/64
--- NOTE | 2020-06-25 20:21 | NUR ---
Discharge instructions given. All questions and concerns addressed. Patient ambulatory with a steady gait. Belongings with patient.
== END 2020-06-25 20:22 | disposition home or self-care (01) ==
LOC: ED 19:38
DX: O20.0 Threatened abortion (principal); R10.30 Lower abdominal pain, unspecified; Z3A.08 8 weeks gestation of pregnancy
CPT/HCPCS: 36415; 76801; 80053; 81001; 84702; 85025; 86850; 86900; 87086; 99285; J2790

== ENCOUNTER 2020-07-07 13:56 | Emergency (ER) | payer OTHER ==
[~2020-07-07] VITALS: Ht 154.9 cm; Wt 92.3 kg
--- NOTE | 2020-07-07 15:12 | NUR ---
informaticist: pt from lobby to room 25
[2020-07-07] MEDS ORDERED: SODIUM CHLORIDE FLUSH 10ML SYR IVF ONE (17:30)
[2020-07-07 17:33] LABS: MICROSCOPIC AUTO
--- NOTE | 2020-07-07 17:44 | NUR ---
BREAK RN: PT RESTING IN ROOM. LABS DRAWN. NO ACUTE DISTRESS NOTED. CALL LIGHT IN PLACE. WILL CONTINUE TO MONITOR WHILE PRIMARY RN IS ON BREAK.
[2020-07-07 17:59] LABS: BASOPHILS % (AUTO) 1 % (0-1); EOSINOPHILS % (AUTO) 4 % (1-7); LYMPHOCYTES % (AUTO) 32 % (22-44); MD NO; MEAN CORPUSCULAR HEMOGLOBIN 28.8 pg (27.0-34.8); MEAN CORPUSCULAR HGB CONC 34.2 g/dL (32.4-35.8); MEAN PLATELET VOLUME 9.3 fL (7.4-10.4); MONOCYTES % (AUTO) 6 % (2-9); NEUTROPHILS % (AUTO) 57 % (42-75); PLATELET COUNT 210 x10^3/uL (130-400); RED CELL DISTRIBUTION WIDTH 15.5 % (9.6-15.2)
[2020-07-07 18:03] LABS: ALANINE AMINOTRANSFERASE 27 U/L (12-78); ALBUMIN 3.4 g/dL (3.4-5.0); ANION GAP 9 mmol/L (5-15); CALCIUM 8.5 mg/dL (8.5-10.1); CHLORIDE 108 mmol/L (98-107); CREATININE 0.64 mg/dL (0.55-1.02)
[2020-07-07 18:19] LABS: ALKALINE PHOSPHATASE 53 U/L (45-117); BILIRUBIN,TOTAL 0.3 mg/dL (0.2-1.0); TOTAL PROTEIN 7.1 g/dL (6.4-8.2)
--- NOTE | 2020-07-07 18:50 | NUR ---
pt in bed with no signs or symptoms of acute dsitress noted respirations even and unlabored, monitor in place and bed rails up bilaterally. call light within reach, pt noted to be using cell phone. denies need at this time.
[2020-07-07 19:22] VITALS: BP 115/56
== END 2020-07-07 20:00 | disposition home or self-care (01) ==
LOC: ED 14:12
DX: O20.0 Threatened abortion (principal); Z3A.01 Less than 8 weeks gestation of pregnancy
CPT/HCPCS: 36415; 76801; 80053; 81001; 84702; 85025; 99285

== ENCOUNTER 2020-10-07 23:57 | Emergency (ER) | payer OTHER ==
[~2020-10-07] VITALS: Ht 154.9 cm; Wt 92.0 kg
--- NOTE | 2020-10-08 00:47 | NUR ---
RN at bedside for FHT. FHT 140's, patient denies feeling contractions.
[2020-10-08 00:51] LABS: BASOPHILS % (AUTO) 1 % (0-1); EOSINOPHILS % (AUTO) 3 % (1-7); LYMPHOCYTES % (AUTO) 16 % (22-44); MEAN CORPUSCULAR HEMOGLOBIN 29.7 pg (27.0-34.8); MEAN CORPUSCULAR HGB CONC 34.3 g/dL (32.4-35.8); MEAN PLATELET VOLUME 9.1 fL (7.4-10.4); MONOCYTES % (AUTO) 6 % (2-9); NEUTROPHILS % (AUTO) 74 % (42-75); PLATELET COUNT 161 x10^3/uL (130-400); RED BLOOD COUNT 4.17 x10^6/uL (3.82-5.3); RED CELL DISTRIBUTION WIDTH 15.1 % (9.6-15.2)
[2020-10-08] MEDS ORDERED: ACETAMINOPHEN 325 MG TABLET PO ONE (01:00)
[2020-10-08] MEDS ORDERED: SODIUM CHLORIDE 0.9% 1,000ML IVBOLUS ONE (01:00)
[2020-10-08 01:02] LABS: ALANINE AMINOTRANSFERASE 18 U/L (12-78); ALBUMIN 2.8 g/dL (3.4-5.0); ANION GAP 8 mmol/L (5-15); CALCIUM 8.6 mg/dL (8.5-10.1); CHLORIDE 108 mmol/L (98-107); CREATININE 0.46 mg/dL (0.55-1.02)
[2020-10-08 01:07] LABS: ALKALINE PHOSPHATASE 58 U/L (45-117); BILIRUBIN,TOTAL 0.2 mg/dL (0.2-1.0); TROPONIN I < 0.015 ng/mL (0.000-0.045)
[2020-10-08] MEDS ORDERED: ACETAMINOPHEN 500 MG TABLET ONE (01:36)
--- NOTE | 2020-10-08 02:02 | NUR ---
pt arrived to ER with a complaint of feeling short of breath, generalized weakness and a cough that started today, pts oxygen saturation is 95%, pt states she feels short of breath on excertion
--- NOTE | 2020-10-08 02:38 | NUR ---
Break RN: US at bedside.
--- NOTE | 2020-10-08 03:23 | NUR ---
pt laying in bed, a/ox4, all needs in reach, call light in reach, NAD, pt has no complaints at this time, mother at bedside
--- NOTE | 2020-10-08 04:36 | NUR ---
pt sitting in bed, a/ox4, all needs in reach, call light in reach, pt has no complaints at this time, NAD
[2020-10-08] MEDS ORDERED: OMNIPAQUE 350 MG/ML, 75ML BOTTLE ONE (04:59)
--- NOTE | 2020-10-08 05:34 | NUR ---
pt sitting in bed on cell phone, a/ox4, all needs in reach, call light in reach, NAD, pt has no complaints at this time, pts vitals reported to MD because pt has been slightly tachy and around the 92% oxygen saturation the whole time, MD ordered CTA to check for pulmonary embolism
--- NOTE | 2020-10-08 06:01 | NUR ---
pt sitting in bed on cell phone, a/ox4, all needs in reach, call light in reach, pt still has no complaints, this RN informed pt that we are waiting on CTA results, NAD
[2020-10-08 06:02] VITALS: BP 126/61
== END 2020-10-08 06:32 | disposition home or self-care (01) ==
LOC: ED 10-08 02:07
DX: O98.512 Other viral diseases complicating pregnancy, second trimester (principal); Z20.822 Contact with and (suspected) exposure to COVID-19; R07.89 Other chest pain; R06.00 Dyspnea, unspecified; R00.0 Tachycardia, unspecified; Z3A.21 21 weeks gestation of pregnancy
CPT/HCPCS: 36415; 71045; 71275; 80053; 83690; 83880; 84484; 85025; 85379; 93005; 93970; 96360; 99285; J7030; Q9967; U0003; U0005

== ENCOUNTER 2021-01-05 16:53 | Outpatient (CLI) | payer OTHER ==
[~2021-01-05] VITALS: Ht 154.9 cm; Wt 95.5 kg
[2021-01-05 17:12] VITALS: BP 135/60
[2021-01-05] MEDS ORDERED: ALBU8.5H8 INH (17:12)
[2021-01-05] MEDS ORDERED: ACETAMINOPHEN 500 MG TABLET ONE (17:27)
[2021-01-05] MEDS ORDERED: ACETAMINOPHEN 500 MG TABLET PO ONE (17:30)
[2021-01-05 17:43] LABS: MICROSCOPIC INDICATED
== END 2021-01-05 18:30 | disposition home or self-care (01) ==
LOC: LDOP 16:53
PROVIDERS: ATTEND Student in an Organized Health Care Education/Training Program
DX: O26.893 Other specified pregnancy related conditions, third trimester (principal); R10.9 Unspecified abdominal pain; Z3A.34 34 weeks gestation of pregnancy
CPT/HCPCS: 59025; 81001

== ENCOUNTER 2021-01-20 09:40 | Outpatient (CLI) | payer OTHER ==
[~2021-01-20] VITALS: Ht 154.9 cm; Wt 95.5 kg
[2021-01-20 10:45] VITALS: BP 112/75
== END 2021-01-20 12:00 | disposition home or self-care (01) ==
LOC: LDOP 09:40
PROVIDERS: ATTEND Student in an Organized Health Care Education/Training Program
DX: O26.893 Other specified pregnancy related conditions, third trimester (principal); R10.9 Unspecified abdominal pain; Z3A.36 36 weeks gestation of pregnancy